=== PATIENT | male | born 1985 | race Caucasian/White ===

== ENCOUNTER 2022-05-02 10:11 | Outpatient (CLI) | payer OTHER, SELFPAY ==
--- NOTE | ~2022-05-02 | XR_ITS ---
EXAMINATION: XR chest 2V Exam Date/Time: 05/02/2022 10:20 SUBSTATION MECHANIC HISTORY: R05.9 - Cough, unspecified, HTN X 2 MONTHS, NO CHEST HX Comparison: None available. RESULT: Lines, tubes, and devices: None. Lungs and pleura: Clear. Cardiomediastinal silhouette: Unremarkable. Other: No acute osseous or upper abdominal finding. IMPRESSION: No acute cardiopulmonary process. Reviewed, dictated and finalized at location K. TATION MECHANIC
--- NOTE | 2022-05-02 10:32 | ECG_ITS ---
Measurements Intervals [place] Rate: 82 P: 38 ND: 171 QRS: -22 QRSD: 115 T: 133 QT: 380 QTc: 445 Interpretive Statements SINUS RHYTHM POSSIBLE LEFT ATRIAL ENLARGEMENT INTRAVENTRICULAR CONDUCTION DELAY CONSIDER INFERIOR INFARCT, AGE INDETERMINATE ST-T WAVE ABNORMALITY IN ANTEROLAT/HIGH LAT LEADS- CONSIDER ISCHEMIA ABNORMAL ECG NO PREVIOUS ECG AVAILABLE FOR COMPARISON Electronically Signed On 05-02-2022 10:52:14 HEALTH CARE TECHNICIAN by Marquez Curran D.O.
== END 2022-05-02 10:12 | disposition home or self-care (01) ==
PROVIDERS: PCP Family Medicine; Visit Provider Nurse Practitioner Family
DX: I10 Essential (primary) hypertension (principal); J98.8 Other specified respiratory disorders; R05.9 Cough, unspecified
CPT/HCPCS: 71046; 93005

== ENCOUNTER 2022-05-28 07:49 | Outpatient (CLI) | payer OTHER, SELFPAY ==
--- NOTE | 2022-05-28 08:02 | EST_ITS ---
Patient Info Name: Terrence Talbot Age: 36 years : 1985 Gender: Male Ht: 70 in Wt: 285 lbs BSA: 2.58 m2 HR: 81 bpm BP: 145 / 102 mmHg Heart Rhythm: Sinus Rhythm Exam Date: 05/28/2022 8:50 AM Exam Location: [facility] Stress Patient Status: Outpatient Admit Date: 05/28/2022 Staff Ordering Physician: Adalgisa Reno NP Attending Provider: Adalgisa Reno NP Exercise Technologist: Lauren Frost CT Exercise Physician: Marquez Curran DO Exam Type: CA stress test treadmill Study Info Indications R94.31 - Abnormal electrocardiogram ECG EKG A treadmill exercise stress test was performed. Summary 1. 1. Negative Jared exercise stress test for ischemic ST changes by ECG criteria. However patient achieved only 83% MPHR for age group which reduces sensitivity of the test. 2. 2. Reduced functional capacity, achieving 10 METs of workload. 3. 3. Baseline hypertension with hypertensive response to exercise. 4. 4. Appropriate HR response to exercise. 5. 5. Appropriate HR recovery at 1 minute post exercise. 6. 6. No imaging with stress testing. 7. 7. Patient informed of the above results. Protocol: Jared Stress ECG Details Stage: REST Duration (min): 1 min : 34 sec Speed (mph): 0.0 Grade (%): 0 HR (bpm): 74 SBP (mmHg): 145 DBP (mmHg): 102 METS: --- Stage: REST Duration (min): 4 min : 57 sec Speed (mph): 0.0 Grade (%): 0 HR (bpm): 84 SBP (mmHg): 145 DBP (mmHg): 102 METS: --- Stage: STAGE 1 Duration (min): 1 min : 0 sec Speed (mph): 1.7 Grade (%): 10 HR (bpm): 100 SBP (mmHg): 145 DBP (mmHg): 102 METS: --- Stage: STAGE 1 Duration (min): 2 min : 0 sec Speed (mph): 1.7 Grade (%): 10 HR (bpm): 108 SBP (mmHg): 145 DBP (mmHg): 102 METS: --- Stage: STAGE 1 Duration (min): 3 min : 0 sec Speed (mph): 1.7 Grade (%): 10 HR (bpm): 113 SBP (mmHg): 185 DBP (mmHg): 103 METS: --- Stage: STAGE 2 Duration (min): 1 min : 0 sec Speed (mph): 2.5 Grade (%): 12 HR (bpm): 120 SBP (mmHg): 185 DBP (mmHg): 103 METS: --- Stage: STAGE 2 Duration (min): 2 min : 0 sec Speed (mph): 2.5 Grade (%): 12 HR (bpm): 126 SBP (mmHg): 212 DBP (mmHg): 108 METS: --- Stage: STAGE 2 Duration (min): 3 min : 0 sec Speed (mph): 2.5 Grade (%): 12 HR (bpm): 131 SBP (mmHg): 212 DBP (mmHg): 108 METS: --- Stage: STAGE 3 Duration (min): 1 min : 0 sec Speed (mph): 3.4 Grade (%): 14 HR (bpm): 141 SBP (mmHg): 219 DBP (mmHg): 100 METS: --- Stage: STAGE 3 Duration (min): 2 min : 0 sec Speed (mph): 3.4 Grade (%): 14 HR (bpm): 146 SBP (mmHg): 219 DBP (mmHg): 100 METS: --- Stage: STAGE 3 Duration (min): 2 min : 46 sec Speed (mph): 3.4 Grade (%): 14 HR (bpm): 151 SBP (mmHg): 219 DBP (mmHg): 100 METS: --- Stage:
--- NOTE | 2022-05-28 08:02 | ECHO_ITS ---
Patient Info Name: Terrence Talbot Age: 36 years : 1985 Gender: Male Ht: 70 in Wt: 285 lbs BSA: 2.58 m2 HR: 79 bpm BP: 161 / 104 mmHg Technical Quality: Good Exam Date: 05/28/2022 8:11 AM Exam Location: [facility] Patient Status: Outpatient Admit Date: 05/28/2022 Staff Ordering Physician: Adalgisa Reno NP Rougher Helper: Yoanna Noonan RDCS Attending Provider: Adalgisa Reno NP Referring Physician: Rowdy GUILLORY; Exam Type: CA echo doppler color flow Study Info Indications R94.31 - Abnormal electrocardiogram ECG EKG Complete two-dimensional, color flow and Doppler transthoracic echocardiogram is performed. Summary 1. Complete two-dimensional, color flow and Doppler transthoracic echocardiogram is performed. 2. Left ventricular chamber dimension is normal. 3. Left ventricular systolic function is normal, estimated at 60-65%. 4. The left ventricular diastolic function is normal. 5. E/e' 8 is minimally elevated. 6. Global longitudinal strain is abnormal at -12.6%. 7. Left atrial chamber dimension is mildly enlarged. 8. No pulmonary hypertension, estimated pulmonary arterial systolic pressure is 29 mmHg. Left Ventricle E/e' 8 is minimally elevated. Global longitudinal strain is abnormal at -12.6%. Left ventricular chamber dimension is normal. Left ventricular systolic function is normal, estimated at 60-65%. The left ventricular diastolic function is normal. Right Ventricle Right ventricular systolic function is normal and with normal TAPSE 2.1 cm. Right ventricular chamber dimension is normal. Left Atria Left atrial chamber dimension is mildly enlarged. Right Atria Right atrial chamber dimension is normal. Aortic Valve The aortic valve is trileaflet. There is no aortic valve stenosis. There is no aortic valve regurgitation. Pulmonic Valve There is no pulmonic regurgitation. Mitral Valve There is no mitral valve stenosis. There is no mitral valve regurgitation. Tricuspid Valve There is no tricuspid valve regurgitation. No pulmonary hypertension, estimated pulmonary arterial systolic pressure is 29 mmHg. Pericardium/Pleural There is no pericardial effusion. Inferior Vena Cava Normal inferior vena cava with >50% collapse upon inspiration consistent with normal right atrial pressure, 5 mmHg. Aorta The aortic root size at the sinus of Valsalva is normal. Left Ventricular Outflow Tract Name Value Normal LVOT 2D LVOT Diameter 2.2 cm LVOT Doppler LVOT Peak Gradient 5 mmHg LVOT Mean Gradient 3 mmHg LVOT VTI 20 cm LVOT VTI/AV VTI Ratio 0.8 LVOT Stroke Volume 75 ml LVOT CO 5.5 l/min LVOT CI 2.1 l/min/m2 Pulmonic Valve Name Value Normal RVOT Dop
== END 2022-05-28 07:50 | disposition home or self-care (01) ==
PROVIDERS: PCP Family Medicine; Visit Provider Nurse Practitioner Family
DX: R94.31 Abnormal electrocardiogram [ECG] [EKG] (principal); I10 Essential (primary) hypertension
CPT/HCPCS: 93017; 93306

== ENCOUNTER 2022-08-07 08:36 | Outpatient (CLI) | payer OTHER, SELFPAY ==
--- NOTE | 2022-08-25 19:50 | WPDHOMESLEEP ---
Sleep Study - Home Unattended Date of Study: 08/07/22 Ordering Provider: Adalgisa Reno NP Interpreting Provider: Medina Fortune, DO Home Sleep Study Type: Watch PAT Height: 1.78 m Weight: 127.006 kg Body Mass Index: 40.1 Neck Circumference (inches): 18 [place]: 20 Reason for Sleep Study Loud snoring, witnessed apneas, daytime hypersomnia Sleep History The patient is a 36-year-old male with hypertension and hypothyroidism that had a sleep study ordered for evaluation of sleep apnea. The patient occasionally awakens from sleep short of breath. He rarely awakens at night with heartburn, belching or cough. He frequently snores and is constantly loudly enough that others complain. He denies having trouble sleeping when he has a cold. He rarely wakes up gasping for air throughout the night. He frequently has breathing problems at night observed by himself or others. He frequently sweats excessively at night. He denies having heart palpitations or irregular heartbeats during the night. He frequently falls asleep during the day and occasionally falls asleep while driving. He denies sleep paralysis and cataplexy. He frequently has trouble at school or work due to sleepiness. He occasionally experiences vivid dreamlike scenes upon awakening or falling asleep. He denies feeling afraid of going to sleep. He rarely has nightmares. He occasionally remembers his dreams. He frequently has thoughts racing through his mind. He occasionally feels sad or depressed. He rarely has anxiety. He frequently has muscular tension. He occasionally notices parts of his body jerk. He frequently kicks during the night. He denies having crawling and aching feelings in his legs and denies having leg pain during the night. He rarely grinds his teeth during sleep and never awakens with morning jaw pain. He is frequently bothered by pain during the day but never awakened by pain during the night. He constantly wakes up feeling stiff in the morning. He frequently wakes up with sore or achy muscles. He occasionally wakes up with pain in the neck, spine and other joints. He goes to bed at midnight on both weekdays and weekends. It takes him 10-30 minutes to fall asleep. He wakes up at least twice per night to urinate. He is able to fall back asleep within 15 minutes. He wakes up at 5:30 a.m. on weekdays and at 11:00 a.m. on the weekends. He typically gets 4 hours of sleep per night. He will stay in bed for 10 minutes after waking up in the morning. He currently lives alone. He does not consume any caffeinated beverages within 2 hours of bedtime. He does not engage in physical exercise before bedtime. He will watch television before falling asleep. He denies taking naps in the afternoon or the evening. He drinks 1-2 caffeinated beverages per day. He denies tobacco, alcohol and recreational drug use. [facility] Past Medical History Medical History BMI 39.0-39.9,adult Body mass index (BMI) of 40.1 to 44.9 in adult Forearm fracture H/O forearm fracture Family History Family History Father Hypertension Sleep apnea Depression Cerebrovascular accident Mother No problems noted. Sibling No problems noted. Grandparent Cancer Diabetes mellitus Social History Social History Smoking status: Never smoker Second hand tobacco smoke exposure: Yes Alcohol intake: current Substance use: never Substance use type: does not use Lack of Transportation: No Lack of Food: Never True Current Housing: I Have Housing Concerned About Future Housing: No Difficulty Paying Gas/Electric Bills: No Difficulty Paying for Meds: No Currently Unemployed: No Education: High School Diploma/GED Difficulty w/ Childcare or Family Care: No Living
[2022-08-25 19:53] VITALS: BMI 40.1
== END 2022-08-10 10:59 | disposition home or self-care (01) ==
LOC: ANHCSM 08:37
PROVIDERS: PCP Family Medicine; Visit Provider Nurse Practitioner Family
DX: G47.19 Other hypersomnia (principal); G47.33 Obstructive sleep apnea (adult) (pediatric)
CPT/HCPCS: 95800

== ENCOUNTER 2022-10-04 07:40 | Outpatient (CLI) | payer OTHER, SELFPAY ==
--- NOTE | 2022-10-26 09:49 | WPDSLEEPSTUD ---
Sleep Study Date of Study: 10/04/22 Ordering Provider: Beny Wilson MD Interpreting Physician: Ana Laura Bradford MD Sleep Study Type: BiPAP Titration Height: 1.78 m Weight: 125.191 kg Body Mass Index: 39.6 Neck Circumference (inches): 18.5 [place]: 20 Reason for Sleep Study * 08/07/2022 - home sleep test with WatchPat showing an AHI of 76, desaturation to 56%, central AHI was 8.6 assocaited with 73 central apneas He presents for a titration. *Echo on 05/28/2022 showed a normal EF 60-65%. Sleep History Terrence Talbot is a 36-year-old man with complaints of hypersomnolence. His 08/07/2022 home sleep test with WatchPat showed an extremely elevated apnea-hypopnea index of 76 with desaturation to 56%. He presents now for a CPAP titration. He has hypertension and hypothyroidism. The patient occasionally awakens from sleep short of breath.? He rarely awakens at night with heartburn, belching or cough.? He frequently snores and is constantly loudly enough that others complain.? He denies having trouble sleeping when he has a cold.? He rarely wakes up gasping for air throughout the night.? He frequently has breathing problems at night observed by himself or others.? He frequently sweats excessively at night.? He denies having heart palpitations or irregular heartbeats during the night.? He frequently falls asleep during the day and occasionally falls asleep while driving.? He denies sleep paralysis and cataplexy.? He frequently has trouble at school or work due to sleepiness.? He occasionally experiences vivid dreamlike scenes upon awakening or falling asleep.? He denies feeling afraid of going to sleep.? He rarely has nightmares.? He occasionally remembers his dreams.? He frequently has thoughts racing through his mind.? He occasionally feels sad or depressed.? He rarely has anxiety.? He frequently has muscular tension.? He occasionally notices parts of his body jerk.? He frequently kicks during the night.? He denies having crawling and aching feelings in his legs and denies having leg pain during the night.? He rarely grinds his teeth during sleep and never awakens with morning jaw pain.? He is frequently bothered by pain during the day but never awakened by pain during the night.? He constantly wakes up feeling stiff in the morning.? He frequently wakes up with sore or achy muscles.? He occasionally wakes up with pain in the neck, spine and other joints.? He goes to bed at midnight on both weekdays and weekends.? It takes him 10-30 minutes to fall asleep.? He wakes up at least twice per night to urinate.? He is able to fall back asleep within 15 minutes.? He wakes up at 5:30 a.m. on weekdays and at 11:00 a.m. on the weekends.? He typically gets 4 hours of sleep per night.? He will stay in bed for 10 minutes after waking up in the morning.? He currently lives alone.? He does not consume any caffeinated beverages within 2 hours of bedtime.? He does not engage in physical exercise before bedtime.? He will watch television before falling asleep.? He denies taking naps in the afternoon or the evening.? He drinks 1-2 caffeinated beverages per day.? He denies tobacco, alcohol and recreational drug use. [facility] Past Medical History Medical History BMI 39.0-39.9,adult Body mass index (BMI) of 40.1 to 44.9 in adult Forearm fracture H/O forearm fracture ELVIRA (obstructive sleep apnea) Family History Family History Father Hypertension Sleep apnea Depression Cerebrovascular accident Mother No problems noted. Sibling No problems noted. Grandparent Cancer Diabetes mellitus Social History Social History Smoking status: Never smoker Second hand tobacco smoke exposure: Yes Alcohol intake: current Substance use: never Substance use type: does not use Lack of Tr
[2022-10-26 11:03] VITALS: BMI 39.6
== END 2022-10-05 06:57 | disposition home or self-care (01) ==
PROVIDERS: PCP Family Medicine; Visit Provider Family Medicine
DX: G47.33 Obstructive sleep apnea (adult) (pediatric) (principal); G47.39 Other sleep apnea
CPT/HCPCS: 95811

== ENCOUNTER 2023-03-14 10:35 | Emergency (ER) | payer OTHER, SELFPAY ==
[2023-03-14 10:41] VITALS: BP 172/99; PULSE 86; RESP 20; TEMP 37.4; O2SAT 100
[2023-03-14] MEDS: SILVER NITRATE (*SP) STICK 1 EACH TOPICAL ×2 (10:57)
--- NOTE | 2023-03-14 11:05 | ED.SKABFB ---
HPI - Skin/Abscess/Foreign Bdy General Chief complaint: Skin/Abscess/Foreign Body Stated complaint: Face Blister Time Seen by Provider: 03/14/23 11:05 Source: patient, RN notes reviewed and old records reviewed Mode of arrival: ambulatory Limitations: no limitations History of Present Illness HPI narrative: 37 year old male presents to express care with complaints of having round 0.5cm type of lesion to his left facial cheek for months duration. 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 He states that he picked lesion last evening accidently and it started bleeding and he has not been able to get it to stop bleeding even after applying pressure to area for the past 12 hours. Patient has roy color 0.5cm lesion to his left facial cheek with constant trickle of blood from site. Patient denies any pain to site MD complaint: other (constant bleeding from lesion on left cheek.) Onset (ago): day(s) (since last night) Treatments prior to arrival: bandages (pressure) Related Data Allergies Allergy/AdvReac Type Severity Reaction Status Date / Time No Known Allergies Allergy Verified 03/14/23 10:43 Review of Systems Review of Systems: CONSTITUTIONAL: Denies fever, chills, or sweats. EYES: Denies visual changes, redness, or discharge. ENT: Denies rhinorrhea, congestion, sore throat, or otalgia. CARDIOVASCULAR: Denies chest pain, palpitations, or edema. RESPIRATORY: Denies cough or dyspnea. GASTROINTESTINAL: Denies abdominal pain, nausea, vomiting, or diarrhea. GENITOURINARY: Denies dysuria or hematuria. SKIN: Denies rash or itching.0.5 cm roy colored lesion to his left face which has been bleeding for 12 hours after patient accidently picked at lesion area. MUSCULOSKELETAL: Denies back pain, joint pain, or myalgia. NEUROLOGIC: Denies headache, numbness, or weakness. PSYCHIATRIC: Denies anxiety or depression. All systems reviewed & are unremarkable except as noted in HPI and below PMFSH Past Medical History Medical History (Updated 03/16/23 @ 10:05 by Denisse Moore NP) BMI 39.0-39.9,adult Body mass index (BMI) of 40.1 to 44.9 in adult Forearm fracture H/O forearm fracture Hypertension Hypothyroidism ELVIRA (obstructive sleep apnea) Family History Family History Father Hypertension Sleep apnea Depression Cerebrovascular accident Mother Thyroid activity decreased Sibling No problems noted. 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 There is no relevant family history pertinent to the presenting complaint Exam Narrative: GENERAL: Well-appearing, well-nourished, and in no acute distress. HEAD: Normocephalic, atraumatic. EYES: PERRLA and EOMI. ENT: Nares clear, no rhinorrhea or epistaxis. Mucous membranes moist.TM's normal, throat pink with no swelling or pain NECK: Supple. no lymphadenopathy CHEST: Clear to auscultation. No respiratory distress.SAO2 100% on room air HEART: Regular rate and rhythm. No murmur heard. Normal peripheral pulses. ABDOMEN: Sof
[2023-03-14] MEDS: LIDO 1%/EPINEPHRINE 1:100,000 20 ML VIAL 5 ML INFILTRATE (11:20)
[2023-03-14 11:53] VITALS: BP 115/82
== END 2023-03-14 12:00 | disposition home or self-care (01) ==
PROVIDERS: Emergency Provider Registered Nurse; PCP Family Medicine
DX: L98.8 Other specified disorders of the skin and subcutaneous tissue (principal); E03.9 Hypothyroidism, unspecified; I10 Essential (primary) hypertension
CPT/HCPCS: 12011; 99213; G0463